=== PATIENT | male | born 1990 | race Caucasian/White ===

== ENCOUNTER 2022-04-09 13:05 | Outpatient (CLI) | payer MEDICAID ==
[2022-04-09 13:17] LABS: BASOPHILS # (AUTO) 0.1 10^3/uL (0.0-0.1); BASOPHILS % (AUTO) 0.8 %; EOSINOPHILS # (AUTO) 0.1 10^3/uL (0.0-0.7); EOSINOPHILS % (AUTO) 1.3 %; HCT - HEMATOCRIT 42.4 % (42.0-52.0); MEAN CORPUSCULAR HEMOGLOBIN 29.2 pg (27.0-31.0); MEAN CORPUSCULAR VOLUME 88.5 fL (80.0-94.0); MEAN PLATELET VOLUME 11.4 fL (7.4-11.4); MONOCYTES # (AUTO) 0.5 10^3/uL (0.0-1.0); MONOCYTES % (AUTO) 8.3 %; NEUTROPHILS # (AUTO) 3.7 10^3/uL (1.5-6.6); NEUTROPHILS % (AUTO) 58.4 %; PLT - PLATELET COUNT 185 10^3/uL (130-450); RED BLOOD COUNT 4.79 10^6/uL (4.70-6.10); RED CELL DISTRIBUTION WIDTH 12.3 % (12.0-15.0); WHITE BLOOD COUNT 6.4 x10^3/uL (4.8-10.8)
[2022-04-09 13:38] LABS: ALBUMIN 4.6 g/dL (3.2-5.5); ALKALINE PHOSPHATASE 42 IU/L (42-121); ALT ALANINE AMINOTRANSFERASE 18 IU/L (10-60); AST ASPARTATE AMINOTRANSFERASE 16 IU/L (10-42); BILIRUBIN,TOTAL 0.3 mg/dL (0.2-1.0); BUN - BLOOD UREA NITROGEN 18 mg/dL (6-20); CARBON DIOXIDE - CO2 29 mmol/L (21-32); CHLORIDE 104 mmol/L (101-111); CHOL/HDL RATIO 2.1 (<5.0); CHOLESTEROL 167 mg/dL; CREATININE 0.9 mg/dL (0.6-1.2); GFR - MDRD 100 (>89); GLUCOSE 95 mg/dL (70-100); HDL CHOLESTEROL 78 mg/dL; POTASSIUM 4.2 mmol/L (3.5-5.0); SODIUM 139 mmol/L (135-145); TOTAL PROTEIN 6.9 g/dL (6.7-8.2); TRIGLYCERIDES 37 mg/dL
[2022-04-09 13:46] LABS: THYROID STIMULATING HORMONE 0.84 uIU/mL (0.34-5.60)
== END 2022-04-09 13:06 | disposition home or self-care (01) ==
LOC: LAB 13:05
PROVIDERS: ATTEND Nurse Practitioner
DX: R53.83 Other fatigue (principal); Z13.220 Encounter for screening for lipoid disorders
CPT/HCPCS: 36415; 80053; 80061; 82607; 83721; 84443; 85025

== ENCOUNTER 2022-05-29 08:07 | Outpatient (CLI) | payer MEDICAID ==
[~2022-05-29 08:07] MED LIST: GADOBUTROL 10 MMOL/10 ML VIAL ONE
[2022-05-29] MEDS ORDERED: GADOBUTROL 10 MMOL/10 ML VIAL IVP ONE (09:02)
--- NOTE | 2022-05-29 10:27 | MRI Report ---
PROCEDURE: MRI brain with and without contrast INDICATIONS: Unspecified neurologic abnormality TECHNIQUE: Noncontrast axial T1 spin echo, axial T2 fast spin echo, sagittal and axial FLAIR, coronal T2 fast sp in echo, axial gradient echo, axial diffusion and ADC through the brain. After the administration of contrast, axial and coronal T1 spin echo with fat saturation through the brain. COMPARISON: None. FINDINGS: Image quality: Excellent. CSF spaces: Basal cisterns are patent. No extra-axial fluid collections. Ventricles are normal in size and shape. Brain: No midline shift. No intracranial bleeds or masses. No abnormal intracranial enhancement. There is cerebral volume loss for age. There is periventricular white matter chronic small vessel is chemic change. The brainstem appears normal. Diffusion-weighted images demonstrate no acute ischemi c insults. No chronic ischemic insults. Normal intravascular flow voids are present. Skull and face: Calvarial marrow is normal in signal. Orbits appear normal. Sinuses: Sinuses and mastoids appear clear. IMPRESSION: Normal MRI of the brain with and without contrast Reviewed by: Bebo Plascencia MD on 05/29/2022 9:25 AM [facility] Approved by: Bebo Plascencia MD on 05/29/2022 9:25 AM [facility] Station ID: [id number]
== END 2022-05-29 08:08 | disposition home or self-care (01) ==
LOC: DI 08:07
PROVIDERS: ATTEND Nurse Practitioner
DX: R29.90 Unspecified symptoms and signs involving the nervous system (principal)
CPT/HCPCS: 70553; A9585

== ENCOUNTER 2022-08-02 13:13 | Outpatient (CLI) | payer MEDICAID ==
[2022-08-02 13:29] LABS: HCT - HEMATOCRIT 43.1 % (42.0-52.0); HGB - HEMOGLOBIN 14.3 g/dL (14.0-18.0); MEAN CORPUSCULAR HEMOGLOBIN 28.8 pg (27.0-31.0); MEAN CORPUSCULAR HGB CONC 33.2 g/dL (32.0-36.0); MEAN CORPUSCULAR VOLUME 86.7 fL (80.0-94.0); MEAN PLATELET VOLUME 10.8 fL (7.4-11.4); RED BLOOD COUNT 4.97 10^6/uL (4.70-6.10); RED CELL DISTRIBUTION WIDTH 11.9 % (12.0-15.0)
[2022-08-02 13:49] LABS: CREATININE,URINE 134.7 mg/dL; MICROALBUM/CREATININE RATIO,UR 2.2 ug/mg (<30.0); MICROALBUMIN,URINE 0.3 mg/dL (0-300.0)
[2022-08-02 13:59] LABS: URIC ACID 4.3 mg/dL (2.6-7.2)
[2022-08-02 14:00] LABS: CRP - C-REACTIVE PROTEIN < 1.0 mg/dL (0-1.0)
[2022-08-02 14:33] LABS: RHEUMATOID FACTOR NEGATIVE (Negative)
--- NOTE | 2022-08-03 17:20 | XRAY Report ---
PROCEDURE: Hand 3 View RT INDICATIONS: MONOARTHRITIS TECHNIQUE: 3 views of the hand(s) acquired. COMPARISON: None FINDINGS: Bones: No fractures or dislocations. No suspicious bony lesions. Soft tissues: No suspicious soft tissue calcifications. IMPRESSION: Joint spaces are well-preserved. No bony erosive changes. No fracture or dislocation. No finding to e xplain patient's symptoms. Reviewed by: Pola Ferguson MD on 08/03/2022 5:19 PM PST Approved by: Pola Ferguson MD on 08/03/2022 5:19 PM PST Station ID: [id number]
[2022-08-03 20:07] LABS: ANTI-DNA (DS) AB QN 1 IU/mL (0-9)
[2022-08-04 17:09] LABS: CYCLIC CITRULLINATED PEP IGG/A 4 units (0-19)
== END 2022-08-02 13:14 | disposition home or self-care (01) ==
LOC: DI 13:13
PROVIDERS: ATTEND Nurse Practitioner
DX: M13.1 Monoarthritis, not elsewhere classified (principal); M13.141 Monoarthritis, not elsewhere classified, right hand
CPT/HCPCS: 36415; 81599; 82043; 82570; 84550; 85027; 85651; 86140; 86200; 86225; 86430

== ENCOUNTER 2022-08-03 16:39 | Outpatient (CLI) | payer MEDICAID | END 2022-08-03 16:40 | disposition home or self-care (01) | LOC: LAB 16:39 | PROVIDERS: ATTEND Naturopath | DX: Z11.1 Encounter for screening for respiratory tuberculosis (principal) | CPT/HCPCS: 81599; 86480 ==

== ENCOUNTER 2022-10-04 10:38 | Outpatient (CLI) | payer MEDICAID ==
--- NOTE | 2022-10-04 13:45 | XRAY Report ---
PROCEDURE: Finger(s) LT INDICATIONS: FINGER PAIN TECHNIQUE: AP hand, 2 views of the second finger(s) acquired. COMPARISON: None FINDINGS: Bones: Dorsal plate fracture of the second middle phalanx base. Soft tissues: No suspicious soft tissue calcifications. IMPRESSION: Dorsal plate fracture of the second middle phalanx base. Reviewed by: Gulshan Zarco on 10/04/2022 12:00 PM PDT Approved by: Gulshan Zarco on 10/04/2022 12:00 PM PDT Station ID: [id number]
== END 2022-10-04 10:39 | disposition home or self-care (01) ==
LOC: DI 10:38
PROVIDERS: ATTEND Physician Assistant
DX: S62.621A Displaced fracture of middle phalanx of left index finger, initial encounter for closed fracture (principal)

== ENCOUNTER 2022-10-11 13:24 | Outpatient (CLI) | payer MEDICAID ==
--- NOTE | 2022-10-11 14:34 | XRAY Report ---
PROCEDURE: Finger(s) LT INDICATIONS: LEFT INDEX FINGER INJURY/FRACTURE TECHNIQUE: AP hand, 3 views of the fifth finger(s) acquired. COMPARISON: None. FINDINGS: Bones: Nondisplaced fracture at the base of the second middle phalanx. Alignment is stable. No suspi cious bony lesions. Soft tissues: No suspicious soft tissue calcifications or masses. IMPRESSION: Stable alignment of second middle phalanx base fracture. Reviewed by: Pennie Denton MD on 10/11/2022 2:33 PM PDT Approved by: Pennie Denton MD on 10/11/2022 2:33 PM PDT Station ID: [id number]
== END 2022-10-11 13:25 | disposition home or self-care (01) ==
LOC: DI.WOS 13:24
PROVIDERS: ATTEND Physician Assistant Surgical
DX: S62.651A Nondisplaced fracture of middle phalanx of left index finger, initial encounter for closed fracture (principal)